=== PATIENT | male | born 2000 | race Caucasian/White ===

== ENCOUNTER 2022-11-11 13:39 | Emergency (ER) | payer OTHER ==
[2022-11-11] MEDS ORDERED: Ketorolac 30 MG/ML SDV IM ONE (14:24)
== END 2022-11-11 15:07 | disposition home or self-care (01) ==
LOC: LL.ED 13:39
DX: S69.92XA Unspecified injury of left wrist, hand and finger(s), initial encounter (principal); W23.0XXA Caught, crushed, jammed, or pinched between moving objects, initial encounter
CPT/HCPCS: 73130-LT; 96372; 99283; J1885

== ENCOUNTER 2025-06-17 16:34 | Emergency (ER) | payer BC, OTHER ==
[2025-06-17] MEDS: FLU (Fluarix Triv) 25-26 (6MOS UP)/PF 45 MCG/0.5 ML Syringe IM ONE (17:51)
== END 2025-06-17 17:57 | disposition home or self-care (01) ==
LOC: LL.ED 16:34
DX: S83.92XA Sprain of unspecified site of left knee, initial encounter (principal); Z23 Encounter for immunization; W00.0XXA Fall on same level due to ice and snow, initial encounter
CPT/HCPCS: 73562-LT; 90471; 90656; 99283-25; A9270-GY